=== PATIENT | male | born 1990 | race Caucasian/White ===

== ENCOUNTER 2017-01-27 13:36 | Emergency (ER) | payer BC ==
[2017-01-27 13:39] VITALS: RESP 18
--- NOTE | 2017-01-27 13:53 | ED ---
General Adult HPI - General Chief complaint: Extremity Injury, Lower Stated complaint: Knee Pain Time Seen by Provider: 01/27/17 13:40 Source: patient, RN notes reviewed Mode of arrival: wheelchair Limitations: no limitations - History of Present Illness Initial comments: This is a 26-year-old male who presents to the emergency department with chief complaint of right knee pain. Patient states that at approximately 11:30 this morning he twisted and felt a pop in his right knee. He states that he is unable to fully extend his right knee. He reports he is unable to walk because it feels like it's going to give out. He characterizes the pain as sharp and states that it is felt to deep inside the knee. Patient states that one month ago he experienced the same "pop" in his right knee but there was no pain associated so patient blew it off. Denies fever, chills, chest pain, shortness of breath, abdominal pain, nausea or vomiting, constipation or diarrhea, dysuria or hematuria, numbness or tingling, headache or vision changes. - Related Data Home Medications Medication Instructions Recorded Confirmed No Known Home Medications [No 01/27/17 01/27/17 Known Home Medications] Allergies Allergy/AdvReac Type Severity Reaction Status Date / Time No Known Allergies Allergy Verified 01/27/17 13:39 Review of Systems ROS Statement: Those systems with pertinent positive or pertinent negative responses have been documented in the HPI. ROS Other: All systems not noted in ROS Statement are negative. Past Medical History Past Medical History: No Reported History History of Any Multi-Drug Resistant Organisms: None Reported Past Surgical History: Adenoidectomy, Tonsillectomy Past Psychological History: No Psychological Hx Reported Smoking Status: Never smoker Past Alcohol Use History: None Reported Past Drug Use History: None Reported General Exam - General Exam Comments Initial Comments: General: Awake and alert, well-developed; in no apparent distress. HEENT: Head atraumatic, normocephalic. Pupils are equal, round and reactive to light. Extraocular movements intact. Neck: Supple. Normal ROM. Cardiovascular: Regular rate and rhythm. No murmurs, rubs or gallops. Chest symmetrical. Respiratory: Lungs clear to auscultation bilaterally. No wheezes, rales or rhonchi. Normal respiratory effort with no use of accessory muscles. Musculoskeletal: Patient has normal active and passive range of motion of right knee, however pain is elicited with full extension. He denies tenderness with valgus or varus stress. Patient is able to bear weight but is unwilling to take a step as he feels like his knee is going to give out. Sensation is intact. No obvious deformities, erythema or swelling noted. Pedal pulses are 2 + equal and palpable bilaterally. Skin: [place], warm and dry without rashes or lesions. Neurological: Alert and oriented x3. CN II-XII grossly intact. Speech is fluent and answers are appropriate. No focal neuro deficits. Psychiatric: Normal mood and affect. No overt signs of depression or anxiety noted. Limitations: no limitations Course Vital Signs 01/27/17 13:37 Temperature 98.2 F Pulse Rate 94 Respiratory 18 Rate Blood Pressure 186/92 O2 Sat by Pulse 96 Oximetry - Reevaluation(s) Reevaluation #1: On reevaluation, patient complains of sore throat for the past week. He states that he frequently has strep infections. Requests a strep swab. 01/27/17 14:40 Procedures - Orthopedic Splinting/Casting Injury #1 Side: right Lower Extremity Injury Location: knee Lower Extremity Immobilizer: knee immobilizer Additional Comments: Patient tolerated well without complication. Neurovascularly intact. Medical Decision Making - Medical Decision Making This is a 26-year-old male who presents to the emergency department with chief complaint of right knee injury. On physical examination, knee appears to be stable. Neurovascularly intact. X-ray revealed unstable osteochondral lesion lateral femoral condyle with displaced fragments. Dr. Foreman spoke with Francia from orthopedics who recommended a knee immobilizer with non- weightbearing. Patient is to follow-up with Dr. Mackey as soon as possible. He reports that he has an appointment scheduled for tomorrow morning. Discussed findings and plan with patient who is in agreement and voices understanding. He will be discharged home at this time. Offered patient a prescription for crutches and he declines. States he has a walker at home that he can use. - Lab Data Lab Results 01/27/17 Range/Units 14:50 Group A Strep Rapid Negative (Negative) - Radiology Data Radiology results: report reviewed Right knee x-ray findings: There is an osteochondral lesion along the mid lateral femoral condyle. The unstable osteochondral fragments are displaced into the knee joint along the anterior aspect of the lateral compartment and measure 1.2 cm and 0.7 cm. The osteochondral defect itself is estimated to measure at least 1.8 cm wide by 6 mm deep by 2.2 cm AP. Suggestion of some mild degenerative spurring in the lateral compartment. Extensor mechanism is intact. Trace knee joint effusion. No other acute fracture or dislocation seen. Impression: Unstable osteochondral lesion mid weightbearing lateral femoral condyle displaced osteochondral fragments measuring 1.2 and 0.7 cm. Trace reactive knee joint effusion. Disposition Clinical Impression: Acute internal derangement of knee Disposition: HOME SELF-CARE Condition: Good Instructions: Knee Sprain (ED) Additional Instructions: Please follow up with orthopedics, Dr. Mackey within 1-2 days. Please do not bear weight on right leg. Use crutches or walker for ambulation. Please rest, ice, elevate and keep knee immobilizer intact. Please return to emergency department if any concerns arise or symptoms worsen. Referrals: Naz Desai MD [Primary Care Provider] - 1-2 days Diogo Mackey MD [Medical Doctor] - 1-2 days Time of Disposition: 15:18
--- NOTE | 2017-01-27 14:24 | XR ---
EXAMINATION TYPE: XR knee complete RT DATE OF EXAM: 01/27/2017 COMPARISON: NONE HISTORY: 26-year-old male with pain after knee popping during walking TECHNIQUE: 3 views FINDINGS: There is an osteochondral lesion along the mid lateral femoral condyle. The unstable osteochondral fr agments are displaced into the knee joint along the anterior aspect of the lateral compartment and me asure 1.2 cm and 0.7 cm. The osteochondral defect itself is estimated to measure at least 1.8 cm wide by 6 mm deep by 2.2 cm AP. Suggestion of some mild degenerative spurring in the lateral compartment. Extensor mechanism is intact. Trace knee joint effusion. No other acute fracture or dislocation seen . IMPRESSION: Unstable osteochondral lesion mid weightbearing lateral femoral condyle with displaced osteochondral fragments measuring 1.2 and 0.7 cm. Trace reactive knee joint effusion.
[2017-01-27 15:29] VITALS: BP 146/88; PULSE 86; TEMP 98.1
== END 2017-01-27 15:29 | disposition home or self-care (01) ==
LOC: EC 13:36
DX: S89.91XA Unspecified injury of right lower leg, initial encounter (principal); X50.1XXA Overexertion from prolonged static or awkward postures, initial encounter
CPT/HCPCS: 87081; 87430; 99283

== ENCOUNTER 2018-02-06 23:57 | Emergency (ER) | payer BC, OTHER ==
[2018-02-07] MEDS ORDERED: KETOROLAC 30 MG/ML 1 ML VIAL IVP STA (00:31)
--- NOTE | 2018-02-07 00:45 | ED ---
Back Pain HPI - General Chief Complaint: Back Pain/Injury Stated Complaint: L side pain Time Seen by Provider: 02/07/18 00:24 Source: patient, family Limitations: no limitations - History of Present Illness Initial Comments: 27-year-old male patient presents to the emergency department today with complaints of left flank pain. Patient states the pain started about a week ago after having upper respiratory infection with frequent coughing. Patient states that the pain increases significantly with every coughing episode. He states it is a sharp stabbing pain. Patient states he did complete a course of steroids which did improve the cough however the pain is now constant to the left side. He denies any history of fractured ribs. Denies any hematuria, dysuria, urinary frequency, urinary urgency. Denies any fevers or chills with this. States the pain does worsen with movement. Patient denies any recent rash , shortness breath, chest pain, abdominal pain, nausea, vomiting, diarrhea, constipation, numbness, tingling, dizziness, weakness, visual changes, or any other complaints. - Related Data Previous Rx's Medication Instructions Recorded Ibuprofen [Motrin] 600 mg PO Q8HR PRN #30 tab 02/07/18 Allergies Allergy/AdvReac Type Severity Reaction Status Date / Time No Known Allergies Allergy Verified 02/07/18 00:18 Review of Systems ROS Statement: Those systems with pertinent positive or pertinent negative responses have been documented in the HPI. ROS Other: All systems not noted in ROS Statement are negative. Past Medical History Past Medical History: No Reported History Additional Past Medical History / Comment(s): right knee pain, due to have surgery. History of Any Multi-Drug Resistant Organisms: None Reported Past Surgical History: Adenoidectomy, Tonsillectomy Past Psychological History: No Psychological Hx Reported Smoking Status: Never smoker Past Alcohol Use History: None Reported Past Drug Use History: None Reported General Exam Limitations: no limitations General appearance: alert, in no apparent distress, other (This is a well- developed, well-nourished adult male patient in no acute distress. Vital signs upon presentation are temperature 98.2F, pulse 76, respirations 20, blood pressure 175/100, pulse ox 97% on room air) Eye exam: Present: normal appearance, PERRL, EOMI. Absent: scleral icterus, conjunctival injection, periorbital swelling ENT exam: Present: normal exam, normal oropharynx, mucous membranes moist Respiratory exam: Present: normal lung sounds bilaterally. Absent: respiratory distress, wheezes, rales, rhonchi, stridor Cardiovascular Exam: Present: regular rate, normal rhythm, normal heart sounds. Absent: systolic murmur, diastolic murmur, rubs, gallop, clicks GI/Abdominal exam: Present: soft, normal bowel sounds. Absent: distended, tenderness, guarding, rebound, rigid Back exam: Present: normal inspection, CVA tenderness (L). Absent: CVA tenderness (R) Neurological exam: Present: alert, oriented X3, CN II-XII intact Psychiatric exam: Present: normal affect, normal mood Skin exam: Present: warm, dry, intact, normal color. Absent: rash Course Vital Signs 02/07/18 02/07/18 00:12 01:58 Temperature 98.2 F Pulse Rate 76 73 Respiratory 20 18 Rate Blood Pressure 175/100 147/94 O2 Sat by Pulse 97 96 Oximetry Medical Decision Making - Medical Decision Making 27 year-old male patient presented to the emergency department today for evaluation of left-sided flank pain that started after he was ill with upper respiratory infection and significant cough. Physical examination was relatively unremarkable. Patient did have increased pain with movement. Lungs are clear to auscultation with good air movement. Chest x-ray showed no acute cardiopulmonary process. Labs reviewed and were unremarkable. D-dimer negative. Urinalysis showed no evidence of blood or signs of kidney stone. Did discuss findings and results with the patient. We did discuss pain is most likely musculoskeletal in nature. He is instructed to take medication as directed. Instructed to follow-up with his primary care physician for recheck in 1-2 days. Return parameters discussed in detail. He verbalizes understanding and agrees with this plan. - Lab Data Result diagrams: 02/07/18 00:45 02/07/18 00:45 Lab Results 02/07/18 02/07/18 02/07/18 Range/Units 00:45 00:45 00:45 WBC 10.6 (3.8-10.6) k/uL RBC 5.28 (4.30-5.90) m/uL Hgb 13.5 (13.0-17.5) gm/dL Hct 40.8 (39.0-53.0) % MCV 77.2 L (80.0-100.0) fL MCH 25.5 (25.0-35.0) pg MCHC 33.0 (31.0-37.0) g/dL RDW 15.2 (11.5-15.5) % Plt Count 209 (150-450) k/uL Neutrophils % 59 % Lymphocytes % 29 % Monocytes % 7 % Eosinophils % 3 % Basophils % 0 % Neutrophils # 6.2 (1.3-7.7) k/uL Lymphocytes # 3.0 (1.0-4.8) k/uL Monocytes # 0.7 (0-1.0) k/uL Eosinophils # 0.3 (0-0.7) k/uL Basophils # 0.0 (0-0.2) k/uL Microcytosis Slight D-Dimer 0.25 (<0.60) mg/L FEU Sodium 141 (137-145) mmol/L Potassium 4.0 (3.5-5.1) mmol/L Chloride 105 (98-107) mmol/L Carbon Dioxide 27 (22-30) mmol/L Anion Gap 9 mmol/L BUN 22 H (9-20) mg/dL Creatinine 0.82 (0.66-1.25) mg/dL Est GFR (CKD-EPI)AfAm >90 (>60 ml/min/1.73 sqM) Est GFR (CKD-EPI)NonAf >90 (>60 ml/min/1.73 sqM) Glucose 89 (74-99) mg/dL Calcium 9.5 (8.4-10.2) mg/dL Total Bilirubin 0.3 (0.2-1.3) mg/dL AST 32 (17-59) U/L ALT 38 (21-72) U/L Alkaline Phosphatase 60 (38-126) U/L Total Protein 6.5 (6.3-8.2) g/dL Albumin 4.0 (3.5-5.0) g/dL Amylase 61 (30-110) U/L Lipase 135 (23-300) U/L Urine Color Urine Appearance (Clear) Urine pH (5.0-8.0) Ur Specific Sarita (1.001-1.035) Urine Protein (Negative) Urine Glucose (UA) (Negative) Urine Ketones (Negative) Urine Blood (Negative) Urine Nitrite (Negative) Urine Bilirubin (Negative) Urine Urobilinogen (<2.0) mg/dL Ur Leukocyte Esterase (Negative) 02/07/18 Range/Units 01:14 WBC (3.8-10.6) k/uL RBC (4.30-5.90) m/uL Hgb (13.0-17.5) gm/dL Hct (39.0-53.0) % MCV (80.0-100.0) fL MCH (25.0-35.0) pg MCHC (31.0-37.0) g/dL RDW (11.5-15.5) % Plt Count (150-450) k/uL Neutrophils % % Lymphocytes % % Monocytes % % Eosinophils % % Basophils % % Neutrophils # (1.3-7.7) k/uL Lymphocytes # (1.0-4.8) k/uL Monocytes # (0-1.0) k/uL Eosinophils # (0-0.7) k/uL Basophils # (0-0.2) k/uL Microcytosis D-Dimer (<0.60) mg/L FEU Sodium (137-145) mmol/L Potassium (3.5-5.1) mmol/L Chloride (98-107) mmol/L Carbon Dioxide (22-30) mmol/L Anion Gap mmol/L BUN (9-20) mg/dL Creatinine (0.66-1.25) mg/dL Est GFR (CKD-EPI)AfAm (>60 ml/min/1.73 sqM) Est GFR (CKD-EPI)NonAf (>60 ml/min/1.73 sqM) Glucose (74-99) mg/dL Calcium (8.4-10.2) mg/dL Total Bilirubin (0.2-1.3) mg/dL AST (17-59) U/L ALT (21-72) U/L Alkaline Phosphatase (38-126) U/L Total Protein (6.3-8.2) g/dL Albumin (3.5-5.0) g/dL Amylase (30-110) U/L Lipase (23-300) U/L Urine Color Yellow Urine Appearance Clear (Clear) Urine pH 6.0 (5.0-8.0) Ur Specific Sarita 1.028 (1.001-1.035) Urine Protein Trace H (Negative) Urine Glucose (UA) Negative (Negative) Urine Ketones Negative (Negative) Urine Blood Negative (Negative) Urine Nitrite Negative (Negative) Urine Bilirubin Negative (Negative) Urine Urobilinogen <2.0 (<2.0) mg/dL Ur Leukocyte Esterase Negative (Negative) - Radiology Data Radiology results: report reviewed, image reviewed Two-view x-ray of the chest is obtained. Heart mediastinum are normal. Lungs are clear. Diaphragm is normal. Bony thorax appears normal. Impression by Dr. Yanez shows normal chest with no change. Disposition Clinical Impression: Costochondral pain Disposition: HOME SELF-CARE Condition: Good Instructions: Costochondritis (ED), Muscle Strain (ED) Additional Instructions: Take medications as directed. Apply ice to the painful areas. Follow-up through primary care physician for recheck in 1-2 days. Return immediately for any new, worsening, or concerning symptoms. Prescriptions: Ibuprofen [Motrin] 600 mg PO Q8HR PRN #30 tab PRN Reason: Pain Is patient prescribed a controlled substance at d/c from ED?: No Referrals: Naz Desai MD [Primary Care Provider] - 1-2 days Time of Disposition: 03:51
[2018-02-07 00:57] LABS: Basophils % (A) 0 %; Eosinophils # (A) 0.3 k/uL (0-0.7); Eosinophils % (A) 3 %; HCT 40.8 % (39.0-53.0); HGB 13.5 gm/dL (13.0-17.5); Lymphocytes % (A) 29 %; MCH 25.5 pg (25.0-35.0); MCV 77.2 fL (80.0-100.0); Mean Platelet Volume 6.4; Microcytosis Slight; Monocytes # (A) 0.7 k/uL (0-1.0); Monocytes % (A) 7 %; Neutrophils # (A) 6.2 k/uL (1.3-7.7); Neutrophils % (A) 59 %; Platelet Count 209 k/uL (150-450); RBC 5.28 m/uL (4.30-5.90); RDW 15.2 % (11.5-15.5); WBC 10.6 k/uL (3.8-10.6)
[2018-02-07 01:24] LABS: ALT 38 U/L (21-72); AST 32 U/L (17-59); Alkaline Phosphatase 60 U/L (38-126); Amylase 61 U/L (30-110); Anion Gap 9 mmol/L; Blood Urea Nitrogen 22 mg/dL (9-20); Calcium 9.5 mg/dL (8.4-10.2); Carbon Dioxide 27 mmol/L (22-30); Chloride 105 mmol/L (98-107); Glucose 89 mg/dL (74-99); Lipase 135 U/L (23-300); Sodium 141 mmol/L (137-145); Total Bilirubin 0.3 mg/dL (0.2-1.3); Total Protein 6.5 g/dL (6.3-8.2)
--- NOTE | 2018-02-07 01:24 | XR ---
EXAMINATION TYPE: XR chest 2V DATE OF EXAM: 02/07/2018 COMPARISON: 09/23/2013 HISTORY: Left-sided rib pain TECHNIQUE: Frontal and lateral views of the chest are obtained. FINDINGS: Heart and mediastinum are normal. Lungs are clear. Diaphragm is normal. Bony thorax appear s normal. IMPRESSION: Normal chest. No change.
[2018-02-07 01:25] LABS: Appearance,Urine Clear (Clear); Bilirubin,Urine Negative (Negative); Blood,Urine Negative (Negative); Color,Urine Yellow; Glucose,Urine (UA) Negative (Negative); Ketones,Urine Negative (Negative); Leukocyte Esterase,Urine Negative (Negative); Nitrite,Urine Negative (Negative); Protein,Urine Trace (Negative); Specific Gravity,Urine 1.028 (1.001-1.035); Urobilinogen,Urine <2.0 mg/dL (<2.0)
[2018-02-07] MEDS ORDERED: SODIUM CHLORIDE 0.9% 1,000 ML IV ONE (01:41)
[2018-02-07] MEDS ORDERED: MORPHINE SULFATE 4 MG/ML SYRINGE IVP STA (02:55)
[2018-02-07] MEDS ORDERED: ONDANSETRON 4 MG/2 ML VIAL IVP STA (02:55)
[2018-02-07] MEDS ORDERED: ACET/COD 300 MG/30 MG STARTER PACK 6 TAB BTL PO STA ×2 (03:33→03:42)
[2018-02-07 04:31] VITALS: BP 140/87; PULSE 77; RESP 20; TEMP 97.8
== END 2018-02-07 04:39 | disposition home or self-care (01) ==
LOC: EC 23:57
DX: R07.1 Chest pain on breathing (principal); M54.9 Dorsalgia, unspecified; R10.9 Unspecified abdominal pain
CPT/HCPCS: 36415; 85379; 80053; 82150; 83690; 85025; 81003; 71046; 99284; 96374; 96375 ×2; 96361 ×3; J2270; J2405; J1885

== ENCOUNTER 2018-02-15 12:45 | Emergency (ER) | payer OTHER ==
--- NOTE | 2018-02-15 13:16 | ED ---
General Adult HPI - General Chief complaint: Upper Respiratory Infection Stated complaint: lt sided pain Time Seen by Provider: 02/15/18 13:06 Source: patient, RN notes reviewed Mode of arrival: ambulatory Limitations: no limitations - History of Present Illness Initial comments: Patient is a pleasant 27-year-old male presenting to the emergency Department with left-sided rib pain. Patient states he was coughing hard this morning and felt a sudden pop in his left ribs. Patient has had continued discomfort since that time however may be not quite as severe. Discomfort is present only with turning and deep breaths. Discomfort is left lateral/posterior ribs. No discomfort at rest. No dyspnea. Patient has been coughing for the past 2-3 weeks. Patient has developed some productive green sputum just the last couple of days. Unclear if there are fevers or not. No leg pain or leg swelling. No anterior chest pain. - Related Data Previous Rx's Medication Instructions Recorded Ibuprofen [Motrin] 600 mg PO Q8HR PRN #30 tab 02/07/18 Acetaminophen-Codeine 300-30mg 2 each PO Q6H PRN #20 tablet 02/15/18 [Tylenol #3] amLODIPine [Norvasc] 5 mg PO DAILY #14 tab 02/15/18 Allergies Allergy/AdvReac Type Severity Reaction Status Date / Time No Known Allergies Allergy Verified 02/15/18 13:29 Review of Systems ROS Statement: Those systems with pertinent positive or pertinent negative responses have been documented in the HPI. ROS Other: All systems not noted in ROS Statement are negative. Constitutional: Reports: as per HPI Eyes: Denies: eye pain ENT: Denies: ear pain Respiratory: Reports: cough. Denies: dyspnea Cardiovascular: Reports: as per HPI Endocrine: Denies: fatigue Gastrointestinal: Denies: abdominal pain Genitourinary: Denies: dysuria Musculoskeletal: Denies: arthralgia Skin: Denies: rash Past Medical History Past Medical History: No Reported History Additional Past Medical History / Comment(s): right knee pain, due to have surgery. History of Any Multi-Drug Resistant Organisms: None Reported Past Surgical History: Adenoidectomy, Tonsillectomy Past Psychological History: No Psychological Hx Reported Smoking Status: Never smoker Past Alcohol Use History: None Reported Past Drug Use History: None Reported General Exam Limitations: no limitations General appearance: alert, in no apparent distress Head exam: Present: atraumatic Eye exam: Present: normal appearance, PERRL ENT exam: Present: normal oropharynx Neck exam: Present: normal inspection Respiratory exam: Present: normal lung sounds bilaterally, other (Patient does have some mild tenderness left lateral/posterior ribs in the region of the seventh and eighth rib.) Cardiovascular Exam: Present: regular rate, normal rhythm GI/Abdominal exam: Present: soft. Absent: tenderness Extremities exam: Present: normal inspection. Absent: pedal edema, calf tenderness Back exam: Present: normal inspection Neurological exam: Present: alert Psychiatric exam: Present: normal affect, normal mood Skin exam: Present: normal color Course Vital Signs 02/15/18 02/15/18 02/15/18 12:56 14:52 15:48 Temperature 98 F 98.5 F Pulse Rate 81 87 84 Respiratory 20 20 Rate Blood Pressure 170/125 161/115 170/106 O2 Sat by Pulse 95 96 96 Oximetry - Reevaluation(s) Reevaluation #1: 02/15/18 14:50 Patient reevaluated. Patient and family updated on results. Blood pressure remains high. Patient will stay for further evaluation regarding this. EKG Findings - EKG Comments: EKG Findings:: Normal sinus rhythm 88. IL 158. QRS 96. QT 370. QTc 447. Normal axis. Q wave in 3 with inverted T waves. No acute ST change. Medical Decision Making - Medical Decision Making Patient reevaluated again and improved. Blood pressure 157/86. Patient updated on results and need for follow-up. - Lab Data Result diagrams: 02/15/18 15:18 02/15/18 15:18 Lab Results 02/15/18 02/15/18 02/15/18 Range/Units 15:18 15:18 15:18 WBC 9.9 (3.8-10.6) k/uL RBC 5.48 (4.30-5.90) m/uL Hgb 13.9 (13.0-17.5) gm/dL Hct 42.1 (39.0-53.0) % MCV 76.8 L (80.0-100.0) fL MCH 25.3 (25.0-35.0) pg MCHC 33.0 (31.0-37.0) g/dL RDW 15.0 (11.5-15.5) % Plt Count 192 (150-450) k/uL Neutrophils % 70 % Lymphocytes % 20 % Monocytes % 6 % Eosinophils % 3 % Basophils % 0 % Neutrophils # 6.8 (1.3-7.7) k/uL Lymphocytes # 2.0 (1.0-4.8) k/uL Monocytes # 0.6 (0-1.0) k/uL Eosinophils # 0.3 (0-0.7) k/uL Basophils # 0.0 (0-0.2) k/uL Microcytosis Slight PT (9.0-12.0) sec INR (<1.2) APTT (22.0-30.0) sec D-Dimer (<0.60) mg/L FEU Sodium 140 (137-145) mmol/L Potassium 4.3 (3.5-5.1) mmol/L Chloride 106 (98-107) mmol/L Carbon Dioxide 27 (22-30) mmol/L Anion Gap 7 mmol/L BUN 17 (9-20) mg/dL Creatinine 0.89 (0.66-1.25) mg/dL Est GFR (CKD-EPI)AfAm >90 (>60 ml/min/1.73 sqM) Est GFR (CKD-EPI)NonAf >90 (>60 ml/min/1.73 sqM) Glucose 87 (74-99) mg/dL Calcium 9.7 (8.4-10.2) mg/dL Magnesium 1.9 (1.6-2.3) mg/dL Total Bilirubin 0.4 (0.2-1.3) mg/dL AST 35 (17-59) U/L ALT 38 (21-72) U/L Alkaline Phosphatase 74 (38-126) U/L Total Creatine Kinase 244 H (55-170) U/L CK-MB (CK-2) 3.2 H (0.0-2.4) ng/mL CK-MB (CK-2) Rel Index 1.3 Troponin I <0.012 (0.000-0.034) ng/mL Total Protein 6.9 (6.3-8.2) g/dL Albumin 4.1 (3.5-5.0) g/dL 12//18 Range/Units 15:18 WBC (3.8-10.6) k/uL RBC (4.30-5.90) m/uL Hgb (13.0-17.5) gm/dL Hct (39.0-53.0) % MCV (80.0-100.0) fL MCH (25.0-35.0) pg MCHC (31.0-37.0) g/dL RDW (11.5-15.5) % Plt Count (150-450) k/uL Neutrophils % % Lymphocytes % % Monocytes % % Eosinophils % % Basophils % % Neutrophils # (1.3-7.7) k/uL Lymphocytes # (1.0-4.8) k/uL Monocytes # (0-1.0) k/uL Eosinophils # (0-0.7) k/uL Basophils # (0-0.2) k/uL Microcytosis PT 10.2 (9.0-12.0) sec INR 0.9 (<1.2) APTT 24.0 (22.0-30.0) sec D-Dimer 0.51 (<0.60) mg/L FEU Sodium (137-145) mmol/L Potassium (3.5-5.1) mmol/L Chloride (98-107) mmol/L Carbon Dioxide (22-30) mmol/L Anion Gap mmol/L BUN (9-20) mg/dL Creatinine (0.66-1.25) mg/dL Est GFR (CKD-EPI)AfAm (>60 ml/min/1.73 sqM) Est GFR (CKD-EPI)NonAf (>60 ml/min/1.73 sqM) Glucose (74-99) mg/dL Calcium (8.4-10.2) mg/dL Magnesium (1.6-2.3) mg/dL Total Bilirubin (0.2-1.3) mg/dL AST (17-59) U/L ALT (21-72) U/L Alkaline Phosphatase (38-126) U/L Total Creatine Kinase (55-170) U/L CK-MB (CK-2) (0.0-2.4) ng/mL CK-MB (CK-2) Rel Index Troponin I (0.000-0.034) ng/mL Total Protein (6.3-8.2) g/dL Albumin (3.5-5.0) g/dL - Radiology Data Radiology results: image reviewed (Chest x-ray shows concern for left 10th rib fracture) Disposition Clinical Impression: Rib fracture, Hypertension Disposition: HOME SELF-CARE Condition: Stable Instructions: Pleurisy (ED), Rib Fracture (ED), Hypertension (ED) Additional Instructions: Please do follow-up with your primary care physician in the next couple of days for recheck. [id number] Motrin as needed. Return for increased pain, change or worsening symptoms, difficulty breathing, or other concerns. Prescriptions: Acetaminophen-Codeine 300-30mg [Tylenol #3] 2 each PO Q6H PRN #20 tablet PRN Reason: Pain amLODIPine [Norvasc] 5 mg PO DAILY #14 tab Is patient prescribed a controlled substance at d/c from ED?: No Referrals: Naz Desai MD [Primary Care Provider] - 1-2 days Time of Disposition: 16:18
--- NOTE | 2018-02-15 13:46 | XR ---
EXAMINATION TYPE: XR ribs LT w pa chest xray DATE OF EXAM: 02/15/2018 CLINICAL HISTORY: Coughing injury with chest and left-sided rib pain. TECHNIQUE: Single frontal view of the chest is obtained. A frontal and oblique images the left-sided ribs are acquired. COMPARISON: Prior chest x-ray from 8 days ago. FINDINGS: There is no focal air space opacity, pleural effusion, or pneumothorax seen. The cardiac silhouette size is within normal limits. The osseous structures are intact. Dedicated images of the left-sided ribs show age-indeterminate slightly displaced fracture involving left lateral 10th rib. Remainder ribs show no additional acute displaced fracture. Overlying soft tis gino is unremarkable. IMPRESSION: 1. No acute cardiopulmonary process. 2. Age-indeterminate minimally displaced fracture left lateral 10th rib. Correlate clinically with po int tenderness at this level advised.
[2018-02-15] MEDS ORDERED: SODIUM CHLORIDE 0.9% 1,000 ML IV STA (14:51)
[2018-02-15] MEDS ORDERED: MORPHINE SULFATE 4 MG/ML SYRINGE IV STA (14:51)
[2018-02-15] MEDS ORDERED: hydrALAZINE HCL 20 MG/ML 1 ML VIAL IVP STA (14:52)
[2018-02-15 14:55] VITALS: TEMP 98.5
[2018-02-15 15:36] LABS: Basophils % (A) 0 %; Eosinophils # (A) 0.3 k/uL (0-0.7); Eosinophils % (A) 3 %; HCT 42.1 % (39.0-53.0); HGB 13.9 gm/dL (13.0-17.5); Lymphocytes % (A) 20 %; MCH 25.3 pg (25.0-35.0); MCV 76.8 fL (80.0-100.0); Mean Platelet Volume 6.8; Microcytosis Slight; Monocytes # (A) 0.6 k/uL (0-1.0); Monocytes % (A) 6 %; Neutrophils # (A) 6.8 k/uL (1.3-7.7); Neutrophils % (A) 70 %; Platelet Count 192 k/uL (150-450); RBC 5.48 m/uL (4.30-5.90); WBC 9.9 k/uL (3.8-10.6)
[2018-02-15 15:41] LABS: ALT 38 U/L (21-72); AST 35 U/L (17-59); Albumin 4.1 g/dL (3.5-5.0); Alkaline Phosphatase 74 U/L (38-126); Anion Gap 7 mmol/L; Blood Urea Nitrogen 17 mg/dL (9-20); Calcium 9.7 mg/dL (8.4-10.2); Carbon Dioxide 27 mmol/L (22-30); Chloride 106 mmol/L (98-107); Glucose 87 mg/dL (74-99); Magnesium 1.9 mg/dL (1.6-2.3); Potassium 4.3 mmol/L (3.5-5.1); Sodium 140 mmol/L (137-145); Total Bilirubin 0.4 mg/dL (0.2-1.3); Total Protein 6.9 g/dL (6.3-8.2)
[2018-02-15 15:45] LABS: INR 0.9 (<1.2)
[2018-02-15 15:46] LABS: D-Dimer 0.51 mg/L FEU (<0.60); Prothrombin Time 10.2 sec (9.0-12.0)
[2018-02-15 15:52] LABS: Creatine Kinase 244 U/L (55-170)
[2018-02-15 16:05] LABS: Creatine Kinase MB 3.2 ng/mL (0.0-2.4); Troponin I <0.012 ng/mL (0.000-0.034)
[2018-02-15] MEDS ORDERED: amLODIPine 5 MG TAB PO STA (16:13)
--- NOTE | 2018-02-15 16:22 | ED ---
Medical Decision Making - Lab Data Result diagrams: 02/15/18 15:18 02/15/18 15:18 Lab Results 02/15/18 02/15/18 02/15/18 Range/Units 15:18 15:18 15:18 WBC 9.9 (3.8-10.6) k/uL RBC 5.48 (4.30-5.90) m/uL Hgb 13.9 (13.0-17.5) gm/dL Hct 42.1 (39.0-53.0) % MCV 76.8 L (80.0-100.0) fL MCH 25.3 (25.0-35.0) pg MCHC 33.0 (31.0-37.0) g/dL RDW 15.0 (11.5-15.5) % Plt Count 192 (150-450) k/uL Neutrophils % 70 % Lymphocytes % 20 % Monocytes % 6 % Eosinophils % 3 % Basophils % 0 % Neutrophils # 6.8 (1.3-7.7) k/uL Lymphocytes # 2.0 (1.0-4.8) k/uL Monocytes # 0.6 (0-1.0) k/uL Eosinophils # 0.3 (0-0.7) k/uL Basophils # 0.0 (0-0.2) k/uL Microcytosis Slight PT (9.0-12.0) sec INR (<1.2) APTT (22.0-30.0) sec D-Dimer (<0.60) mg/L FEU Sodium 140 (137-145) mmol/L Potassium 4.3 (3.5-5.1) mmol/L Chloride 106 (98-107) mmol/L Carbon Dioxide 27 (22-30) mmol/L Anion Gap 7 mmol/L BUN 17 (9-20) mg/dL Creatinine 0.89 (0.66-1.25) mg/dL Est GFR (CKD-EPI)AfAm >90 (>60 ml/min/1.73 sqM) Est GFR (CKD-EPI)NonAf >90 (>60 ml/min/1.73 sqM) Glucose 87 (74-99) mg/dL Calcium 9.7 (8.4-10.2) mg/dL Magnesium 1.9 (1.6-2.3) mg/dL Total Bilirubin 0.4 (0.2-1.3) mg/dL AST 35 (17-59) U/L ALT 38 (21-72) U/L Alkaline Phosphatase 74 (38-126) U/L Total Creatine Kinase 244 H (55-170) U/L CK-MB (CK-2) 3.2 H (0.0-2.4) ng/mL CK-MB (CK-2) Rel Index 1.3 Troponin I <0.012 (0.000-0.034) ng/mL Total Protein 6.9 (6.3-8.2) g/dL Albumin 4.1 (3.5-5.0) g/dL 02/15/18 Range/Units 15:18 WBC (3.8-10.6) k/uL RBC (4.30-5.90) m/uL Hgb (13.0-17.5) gm/dL Hct (39.0-53.0) % MCV (80.0-100.0) fL MCH (25.0-35.0) pg MCHC (31.0-37.0) g/dL RDW (11.5-15.5) % Plt Count (150-450) k/uL Neutrophils % % Lymphocytes % % Monocytes % % Eosinophils % % Basophils % % Neutrophils # (1.3-7.7) k/uL Lymphocytes # (1.0-4.8) k/uL Monocytes # (0-1.0) k/uL Eosinophils # (0-0.7) k/uL Basophils # (0-0.2) k/uL Microcytosis PT 10.2 (9.0-12.0) sec INR 0.9 (<1.2) APTT 24.0 (22.0-30.0) sec D-Dimer 0.51 (<0.60) mg/L FEU Sodium (137-145) mmol/L Potassium (3.5-5.1) mmol/L Chloride (98-107) mmol/L Carbon Dioxide (22-30) mmol/L Anion Gap mmol/L BUN (9-20) mg/dL Creatinine (0.66-1.25) mg/dL Est GFR (CKD-EPI)AfAm (>60 ml/min/1.73 sqM) Est GFR (CKD-EPI)NonAf (>60 ml/min/1.73 sqM) Glucose (74-99) mg/dL Calcium (8.4-10.2) mg/dL Magnesium (1.6-2.3) mg/dL Total Bilirubin (0.2-1.3) mg/dL AST (17-59) U/L ALT (21-72) U/L Alkaline Phosphatase (38-126) U/L Total Creatine Kinase (55-170) U/L CK-MB (CK-2) (0.0-2.4) ng/mL CK-MB (CK-2) Rel Index Troponin I (0.000-0.034) ng/mL Total Protein (6.3-8.2) g/dL Albumin (3.5-5.0) g/dL Disposition Clinical Impression: Rib fracture, Hypertension Disposition: HOME SELF-CARE Condition: Stable Instructions: Pleurisy (ED), Rib Fracture (ED), Hypertension (ED) Additional Instructions: Please do follow-up with your primary care physician in the next couple of days for recheck. [id number] Motrin as needed. Return for increased pain, change or worsening symptoms, difficulty breathing, or other concerns. Prescriptions: Acetaminophen-Codeine 300-30mg [Tylenol #3] 2 each PO Q6H PRN #20 tablet PRN Reason: Pain amLODIPine [Norvasc] 5 mg PO DAILY #14 tab Is patient prescribed a controlled substance at d/c from ED?: Yes When asked, does pt state using other controlled substances?: No If prescribed controlled substance>3 days was MAPS reviewed?: Prescribed <3 Days If opioid is for acute pain is fill amount 7 days or less?: Yes If Rx opioid, was Start Talking consent form obtained?: Yes Referrals: Naz Desai MD [Primary Care Provider] - 1-2 days
[2018-02-15 16:24] VITALS: BP 142/82; PULSE 86; RESP 18
== END 2018-02-15 17:03 | disposition home or self-care (01) ==
LOC: EC 12:45
DX: S22.32XA Fracture of one rib, left side, initial encounter for closed fracture (principal); I10 Essential (primary) hypertension
CPT/HCPCS: 36415; 93005; 85379; 80053; 82550; 82553; 83735; 84484; 85025; 85610; 85730; 71101; 99284; 96374; 96375; 96361; J2270; J0360

== ENCOUNTER 2022-10-10 12:30 | Emergency (ER) | payer OTHER ==
[2022-10-10 12:35] VITALS: BP 167/111; TEMP 98
[2022-10-10] MEDS ORDERED: DIPH,PERTUS(ACELL)TETVAC-LF 0.5 ML VIAL IM ONE (13:02)
[2022-10-10] MEDS: LIDOCAINE 1% INJ 10MG/ML (20 ML MDV) SQ ONE (13:07)
[2022-10-10] MEDS ORDERED: IBUPROFEN 800 MG TAB PO STA (13:14)
[2022-10-10] MEDS ORDERED: BACITRACIN OINT 1 EACH PACKET TOPICAL ONE (14:13)
[2022-10-10] MEDS ORDERED: IBUPROFEN 600 MG STARTER PACK 4 TAB BTL PO STA (14:14)
--- NOTE | 2022-10-10 14:32 | ED ---
Wound/Laceration HPI - General Chief Complaint: Wound/Laceration Stated Complaint: Right leg laceration Time Seen by Provider: 10/10/22 12:47 Source: patient Mode of arrival: ambulatory Limitations: no limitations - History of Present Illness Initial Comments: 31 year old Male presents to ED with chief complaint of laceration. Patient states that he was walking on the roof at the [employer] in one of the ceramic tiles came loose and he stepped through it causing a laceration to his right lower leg. No other injuries at this time. Tetanus status unknown. No other complaints. - Related Data Previous Rx's Medication Instructions Recorded Ibuprofen [Motrin] 600 mg PO Q8HR PRN #30 tab 02/07/18 Acetaminophen-Codeine 300-30mg 2 each PO Q6H PRN #20 tablet 02/15/18 [Tylenol #3] Ibuprofen [Motrin] 600 mg PO Q6HR PRN #20 tab 02/15/18 amLODIPine [Norvasc] 5 mg PO DAILY #14 tab 02/15/18 Ibuprofen [Motrin] 600 mg PO Q8HR PRN #20 tab 10/10/22 Allergies Allergy/AdvReac Type Severity Reaction Status Date / Time No Known Allergies Allergy Verified 02/15/18 13:29 Review of Systems ROS Statement: Those systems with pertinent positive or pertinent negative responses have been documented in the HPI. ROS Other: All systems not noted in ROS Statement are negative. Past Medical History Past Medical History: No Reported History Additional Past Medical History / Comment(s): right knee pain, due to have surgery. History of Any Multi-Drug Resistant Organisms: None Reported Past Surgical History: Adenoidectomy, Tonsillectomy Past Psychological History: No Psychological Hx Reported Past Alcohol Use History: None Reported Past Drug Use History: None Reported General Exam Limitations: no limitations General appearance: alert, in no apparent distress, obese Eye exam: Present: normal appearance Neck exam: Present: normal inspection Respiratory exam: Present: normal lung sounds bilaterally Cardiovascular Exam: Present: regular rate, normal rhythm GI/Abdominal exam: Present: soft Extremities exam: Present: other (Approximately 6 x 2 cm laceration on the right lower anterior leg without any foreign objects visualized. Right lower extremity distal to injury neurovascularly intact. Good Strength) Neurological exam: Present: alert, oriented X3 Skin exam: Present: warm, dry Course Vital Signs 10/10/22 12:32 Temperature 98 F Pulse Rate 97 Respiratory 20 Rate Blood Pressure 167/111 O2 Sat by Pulse 97 Oximetry Procedures - Laceration Laceration #1 Indication: laceration Site: lower extremity Size (cm): 6 Description: linear Depth: simple, single layer Sedation/Analgesia: none Anesthetic Used: lidocaine 1% Anesthesia Technique: local infiltration Amount (mls): 6 Pre-repair: wound explored, irrigated extensively Type of Sutures: nylon Size of Sutures: 4-0 Number of Sutures: 10 Technique: simple, interrupted Patient Tolerated Procedure: well, no complications Medical Decision Making - Medical Decision Making Was pt. sent in by a medical professional or institution (, PA, POWER TRANSFORMER REPAIR SUPERVISOR, urgent care, hospital, or half-way...) When possible be specific @ -No Did you speak to anyone other than the patient for history (EMS, parent, family, police, friend...)? What history was obtained from this source @ -No Did you review nursing and triage notes (agree or disagree)? Why? @ -I reviewed and agree with nursing and triage notes Were old charts reviewed (outside hosp., previous admission, EMS record, old EKG, old radiological studies, urgent care reports/EKG's, half-way records)? Report findings @ -No old charts were reviewed Differential Diagnosis (chest pain, altered mental status, abdominal pain women, abdominal pain men, vaginal bleeding, weakness, fever, dyspnea, syncope, headache, dizziness, GI bleed, back pain, seizure, CVA, palpatations, mental health, musculoskeletal)? @ -Differential Musculoskeletal Muscular strain, contusion, ligament sprain, fracture, arthritis, septic arthritis, bursitis, cellulitis, muscle spasm, nerve compression, DVT, arterial occlusion, herpes zoster, electrolyte abnormality, tumor.... This is not meant to be in all inclusive list EKG interpreted by me (3pts min.). @ -None X-rays interpreted by me (1pt min.). @ -None done CT interpreted by me (1pt min.). @ -None done U/S interpreted by me (1pt. min.). @ -None done What testing was considered but not performed or refused? (CT, X-rays, U/S, labs)? Why? @ -None What meds were considered but not given or refused? Why? @ -None Did you discuss the management of the patient with other professionals (professionals i.e. , PA, POWER TRANSFORMER REPAIR SUPERVISOR, lab, RT, psych nurse, social media senior associate, wind turbine installer, teacher, president and chief operating officer, case folder)? Give summary @ -No Was smoking cessation discussed for >3mins.? @ -No Was critical care preformed (if so, how long)? @ -No Were there social determinants of health that impacted care today? How? (Homelessness, low income, unemployed, alcoholism, drug addiction, transportation, low edu. Level, literacy, decrease access to med. care, snf, rehab)? @ -No Was there de-escalation of care discussed even if they declined (Discuss DNR or withdrawal of care, Hospice)? DNR status @ -No What co-morbidities impacted this encounter? (DM, HTN, Smoking, COPD, CAD, Cancer, CVA, ARF, Chemo, Hep., AIDS, mental health diagnosis, sleep apnea, morbid obesity)? @ -None Was patient admitted / discharged? Hospital course, mention meds given and route, prescriptions, significant lab abnormalities, going to OR and other pertinent info. @ -Discharge. Laceration repaired. For further details please see procedure note. After laceration repair, covered with bacitracin and bandaged. Discussed wound care. Advised monitoring for signs of infection. Tetanus updated. Discharged home in stable condition. Discussed return precautions with patient verbalizes agreement. Undiagnosed new problem with uncertain prognosis? @ -No Drug Therapy requiring intensive monitoring for toxicity (Heparin, Nitro, Insulin, Cardizem)? @ -No Were any procedures done? @ -Yes, please see procedure note for further details Diagnosis/symptom? @ -Laceration to right anterior lower leg Acute, or Chronic, or Acute on Chronic? @ -Acute Uncomplicated (without systemic symptoms) or Complicated (systemic symptoms)? @ -Uncomplicated Side effects of treatment? @ -No Exacerbation, Progression, or Severe Exacerbation? @ -No Poses a threat to life or bodily function? How? (Chest pain, [place], [place], pneumonia, PE, COPD, DKA, ARF, appy, cholecystitis, CVA, Diverticulitis, Homicidal, Suicidal, threat to staff... and all critical care pts) @ -No Disposition Clinical Impression: Laceration Disposition: HOME SELF-CARE Condition: Good Instructions (If sedation given, give patient instructions): Care For Your Stitches (ED) Additional Instructions: Please return to the Emergency Department if symptoms worsen or any other concerns. Please return in 10-14 days for suture removal. Monitor for signs of infection. Prescriptions: Ibuprofen [Motrin] 600 mg PO Q8HR PRN #20 tab PRN Reason: Pain Is patient prescribed a controlled substance at d/c from ED?: No Referrals: Naz Desai MD [Primary Care Provider] - 1-2 days Time of Disposition: 14:26
[2022-10-10 14:50] VITALS: PULSE 93; RESP 18
== END 2022-10-10 14:49 | disposition home or self-care (01) ==
LOC: EC 12:30
DX: S81.811A Laceration without foreign body, right lower leg, initial encounter (principal); Z23 Encounter for immunization; W26.8XXA Contact with other sharp object(s), not elsewhere classified, initial encounter
CPT/HCPCS: 99282 ×2; 90471 ×2; 12002 ×2; 90715; J2001